=== PATIENT | female | born 1985 | race African-American/Black ===

== ENCOUNTER 2023-06-29 11:29 | Emergency (ER) | payer MEDICAID ==
[~2023-06-29] VITALS: Ht 165.1 cm; Wt 77.0 kg
[2023-06-29 11:32] VITALS: O2SAT 98
[2023-06-29] MEDS: SODIUM CHLORIDE 0.9% 1,000 ML IV ONE ×2 (12:15→13:50)
[2023-06-29 12:53] LABS: HEMATOCRIT. 40.8 % (36.0-48.0); HEMOGLOBIN. 13.5 g/dL (12.0-16.0); MEAN CORPUSCULAR HEMOGLOBIN 29.9 pg (28.0-32.0); MEAN CORPUSCULAR HGB CONC 33.1 g/dL (31.0-37.0); MEAN CORPUSCULAR VOLUME 90.6 fL (81.0-99.0); MEAN PLATELET VOLUME 9.4 fl (7.4-10.4); PLATELET 296 x1000/uL (130-400); RED BLOOD CELL COUNT 4.51 mill/uL (4.2-5.4); RED CELL DISTRIBUTION WIDTH 13.6 % (11.6-14.6); WHITE BLOOD COUNT 9.8 x1000/uL (4.5-11.0)
[2023-06-29 13:02] LABS: ALANINE AMINOTRANSFERASE 17 IU/L (10-49); ALBUMIN 5.1 g/dL (3.2-4.8); ASPARTATE AMINOTRANSFERASE 26 IU/L (<34); BETA HYDROXYBUTYRATE 2.9 mMol/L (0.0-0.3); BILIRUBIN TOTAL 0.8 mg/dL (0.1-1.0); CALCIUM 10.4 mg/dL (8.7-10.4); CARBON DIOXIDE 24 mEq/L (21-32); CHLORIDE 100 mEq/L (98-107); CREATININE 0.8 mg/dL (0.6-1.0); GLUCOSE 342 mg/dL (70-105); POTASSIUM 3.8 mEq/L (3.5-5.1); PROTEIN TOTAL 8.3 g/dL (6.0-8.3); SODIUM 138 mEq/L (136-145); UREA NITROGEN BLOOD 11 mg/dL (9-23)
[2023-06-29] MEDS: MORPHINE SULFATE 4 MG/ML CPJ (NOT FOR IM USE) IV STA (13:03)
[2023-06-29] MEDS: ONDANSETRON HCL 4MG/2ML INJ IV STA (13:03)
[2023-06-29 13:05] LABS: HCG SCREEN NEGATIVE
[2023-06-29 13:07] LABS: DIFFERENTIAL COMMENT 1
[2023-06-29 13:45] LABS: PLATELET ESTIMATE NORMAL
[2023-06-29] MEDS: FAMOTIDINE 20MG/2ML VIAL IV NR (13:52)
[2023-06-29] MEDS: INSULIN REGULAR (HUMULIN R) 300UNITS/3ML VIAL IV NR (13:52)
[2023-06-29] MEDS: PROCHLORPERAZINE 10MG/2ML VIAL IV ONE (14:34)
[2023-06-29] MEDS: DIPHENHYDRAMINE 50MG/ML VIAL IV ONE (14:34)
[2023-06-29 15:04] LABS: INR 0.9; PROTHROMBIN TIME 10.3 sec (9.6-11.0)
[2023-06-29] MEDS ORDERED: SULF1TAB48 MT (16:49)
[2023-06-29] MEDS ORDERED: ONDA4TAB50 MT (16:49)
[2023-06-29 16:53] VITALS: BP 156/69; PULSE 85; RESP 17; TEMP 98.2
[2023-06-29] MEDS ORDERED: METO-293 MT (17:02)
[2023-06-29 17:09] LABS: CLARITY URINE CLEAR (CLEAR); COLOR URINE YELLOW (YELLOW); GLUCOSE URINE 3+ (NEGATIVE); KETONES URINE 4+ (NEGATIVE); LEUKOCYTE ESTERASE URINE NEGATIVE (NEGATIVE); NITRITE URINE NEGATIVE (NEGATIVE); OCCULT BLOOD URINE 1+ (NEGATIVE); PROTEIN URINE 1+ (NEGATIVE); SPECIFIC GRAVITY URINE 1.029 (1.005-1.030); UROBILINOGEN URINE 0.2 E.U./dL (0.2-1.0)
[2023-06-29] MEDS: SULFAMETHOXAZOLE/TRIMETHOPRIM 800/160MG TABLET PO ONE (17:13)
[2023-06-29 17:19] LABS: *AMPHETAMINES SCREEN URINE NEGATIVE (NEGATIVE); *BARBITURATES SCREEN URINE NEGATIVE (NEGATIVE); *BENZODIAZEPINES SCREEN URINE NEGATIVE (NEGATIVE); *COCAINE SCREEN URINE NEGATIVE (NEGATIVE); CANNABINOID URINE SCREEN PRESUMPTIVE POSITIVE (NEGATIVE); ECSTASY MDMA SCREEN URINE NEGATIVE (NEGATIVE); METHADONE URINE SCREEN Neg (NEGATIVE); OPIATES URINE SCREEN PRESUMPTIVE POSITIVE (NEGATIVE); PHENCYCLIDINE URINE SCREEN NEGATIVE (NEGATIVE)
[2023-06-29 17:21] LABS: SQUAMOUS EPITHELIAL CELL URINE 1+ /lpf (RARE/1+); WBC URINE 0-2 /hpf (0-2)
[2023-06-29 17:22] LABS: BACTERIA URINE NONE SEEN
[2023-06-29] MEDS: METOCLOPRAMIDE HCL 10MG/2ML VIAL IV ONE (17:47)
[2023-06-29] MEDS: INSULIN REGULAR (HUMULIN R) 300UNITS/3ML VIAL SUBCUT ONE (17:48)
== END 2023-06-29 21:36 | disposition left against medical advice (07) ==
LOC: ER 11:29 → CANBEDREQ 19:00 → ER 21:36
DX: R11.2 Nausea with vomiting, unspecified (principal); E11.65 Type 2 diabetes mellitus with hyperglycemia; I10 Essential (primary) hypertension; Z98.890 Other specified postprocedural states
CPT/HCPCS: 80053; 80305; 81003; 82010; 82962; 84703; 83690; 85025; 85610; 36415; 74176; 96361; 96372; 96374; 96375; 99291; J1200; J1815; J2765; J2405; J0780; J2270; J7030; Z7610 ×3; C1893